=== PATIENT | female | born 2000 | race Two or more races ===

== ENCOUNTER 2021-04-18 22:45 | Emergency (ER) | payer MEDICAID ==
[~2021-04-18] VITALS: Ht 149.9 cm; Wt 55.0 kg
[2021-04-18 22:53] VITALS: BP 114/75
[2021-04-18] MEDS ORDERED: BACITRACIN ZINC OINT UDPKT TOP ONE (23:30)
[2021-04-18] MEDS ORDERED: TETANUS, DIPHTHERIA, PERTUSSIS VAC/PF 0.5ML (>7YR OLD) IM ONE (23:30)
[2021-04-18] MEDS ORDERED: ACETAMINOPHEN 325MG TABLET PO ONE (23:30)
[2021-04-19] MEDS ORDERED: BO1 TP (00:09)
== END 2021-04-19 00:21 | disposition home or self-care (01) ==
LOC: ER 22:45
DX: S01.01XA Laceration without foreign body of scalp, initial encounter (principal); Z79.899 Other long term (current) drug therapy; X58.XXXA Exposure to other specified factors, initial encounter; Y93.89 Activity, other specified; Y92.89 Other specified places as the place of occurrence of the external cause; Y99.8 Other external cause status
CPT/HCPCS: 90471; 90715; 99283